=== PATIENT | male | born 1980 | race Caucasian/White ===

== ENCOUNTER 2018-11-16 06:00 | Day surgery (SDC) | payer OTHER ==
--- NOTE | 2018-10-25 09:45 | HP ---
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 He has had an umbilical hernia for the past many years. It is enlarging and bothersome to him. Plan is for robotic mesh reinforcement and fascial closure, minimally invasive repair outpatient. He understands risks and benefits including infection, bleeding, reoperation, and recurrence of the hernia and he consents. He will abstain from lifting over 25 pounds for 4 weeks postoperatively. SOCIAL HISTORY: Tobacco, none. Alcohol, none. PAST SURGICAL HISTORY: Noncontributory. PAST MEDICAL HISTORY: Noncontributory. REVIEW OF SYSTEMS: Noncontributory. PHYSICAL EXAMINATION: VITAL SIGNS: Weight 147 pounds, height 67 inches, BMI 23, blood pressure 117/73, heart rate 52, temperature 97.9 degrees. HEAD, EARS, EYES, NOSE AND THROAT: Unremarkable. LUNGS: Clear to auscultation. CARDIAC: Regular rate and rhythm without murmur or gallop. ABDOMEN: Soft. Umbilical hernia present protruding superiorly in the umbilicus. It is reducible. Defect is difficult to measure due to the larger hernia mass. EXTREMITIES: Unremarkable. ASSESSMENT AND PLAN: Umbilical hernia. We will plan repair robotically using mesh. He understands risks and benefits and consents. Questions answered. Job ID: [id number]
[2018-11-15 08:31] VITALS: BMI 27.4
[2018-11-16] MEDS ORDERED: Ketorolac Tromethamine 30 MG/ML VIAL ONE (06:16)
[2018-11-16] MEDS ORDERED: ceFAZolin Sodium (SDC) 2 GM/100 ML BAG ONE (06:16)
[2018-11-16 06:34] LABS: #Basophils 0.1 thou/uL (0.0-0.2); #Eosinphils 0.2 thou/uL (0.0-0.7); #Lymphocytes 2.6 thou/uL (1.20-3.40); #Monocytes 0.5 thou/uL (0.11-0.59); #Neutrophils 2.4 thou/uL (1.40-6.50); %Basophils 1.3 % (0.0-1.0); %Eosinophils 3.8 % (0.0-10.0); %Lymphocytes 44.7 % (21.0-51.0); %Monocytes 8.7 % (0.0-10.0); %Neutrophils 41.5 % (42.0-75.0); Hemoglobin 15.8 g/dL (14.0-18.0); Mean Corpuscular HGB CONC 33.3 g/dL (32.0-36.0); Mean Corpuscular Hemoglobin 31.2 pg (27.0-31.0); Mean Corpuscular Volume 93.6 fL (78.0-98.0); Mean Platelet Volume 7.3 fL (7.4-10.4); Platelet Count 261 thou/uL (130-400); RBC Distribution Width 11.4 % (11.5-14.5); Red Blood Cell (RBC) Count 5.08 mill/uL (4.70-6.10); White Blood Cell (WBC) Count 5.9 thou/uL (4.8-10.8)
[2018-11-16 06:52] LABS: Anion Gap 12 mmol/L (10-20); BUN (Urea Nitrogen) 14 mg/dL (8.9-20.6); Calc. Creatinine Clearance 128 mL/min (70-130); Calcium 9.8 mg/dL (7.8-10.44); Carbon Dioxide 23 mmol/L (22-29); Chloride 104 mmol/L (98-107); Estimated GFR-MDRD Greater than 90; Glucose 105 mg/dL (70-105); Potassium 3.4 mmol/L (3.5-5.1); Sodium 136 mmol/L (136-145)
[2018-11-16] MEDS ORDERED: Bupivacaine/Epinephrine 0.25% 30 ML VIAL ONE (06:55)
[2018-11-16] MEDS ORDERED: Fentanyl 100 MCG/2 ML VIAL ONE ×2 (07:11→09:54)
[2018-11-16] MEDS ORDERED: HYDROcodone/Acetaminophen 5/325 mg Tablet ONE (11:49)
--- NOTE | 2018-11-16 15:52 | OP ---
DATE OF PROCEDURE: 11/16/2018 PREOPERATIVE DIAGNOSIS: Umbilical hernia, incarcerated, painful. POSTOPERATIVE DIAGNOSIS: Umbilical hernia, incarcerated, painful. PROCEDURE: Robot/laparoscopic-assisted umbilical hernia repair with reinforcement of fascial closure using mesh, 8 cm, Ventralight. ANESTHESIA: General, local 0.5% Marcaine with epinephrine 30 mL. DESCRIPTION OF PROCEDURE: The patient was taken to the operating room. Under general anesthesia, a left subxiphoid incision was made and the abdomen was prepared with ChloraPrep and draped in routine fashion. Local anesthetic was infiltrated in the skin and subcutaneous tissue about all port sites. Left subxiphoid incision was made. Pneumoperitoneum to 15 mmHg was obtained with a Veress needle, replacing with an 11-mm balloon port. Laparoscope inserted. Bilateral far lateral subcostal incision made, so an 8-mm port was placed. A robot was docked, connected, and robot hernia repair undertaken. Fatty tissue about the umbilicus was cleared with hot cautery scissors. Falciform ligament was dissected free to allow mesh contact to the fascia of peritoneum. The umbilical hernia defect was dissected free and removed fatty tissue, taking care to not injure skin. Fascia closed with continuous suture of #1 V-Loc suture, reducing pneumoperitoneum to 10 mmHg. An 8-cm in diameter mesh was secured and about the hernia repair, held in place with continuous peripheral suture of 2-0 V-Loc suture. Once this was completed, all needles removed. The pneumoperitoneum was reduced. All the instruments were removed. Subxiphoid fascia left approximated with [id number] suture of 0 Vicryl UR needle. Skin and subcutaneous tissue were approximated with 4-0 Monocryl subcuticular. The patient tolerated the procedure well and Dermabond applied. Job ID: [id number]
== END 2018-11-16 14:00 | disposition home or self-care (01) ==
LOC: SDC 06:00
PROVIDERS: ATTEND Specialist
PROC: 0WUF4JZ Supplement Abdominal Wall with Synthetic Substitute, Percutaneous Endoscopic Approach (ICD-10-PCS; principal; 2018-11-16)
DX: K42.0 Umbilical hernia with obstruction, without gangrene (principal)
CPT/HCPCS: 36415; 80048; 85025; C1781; J0131; J0690; J1885; J3010